=== PATIENT | male | born 1985 | race Caucasian/White ===

== ENCOUNTER 2025-03-13 10:27 | Emergency (ER) | payer SELFPAY ==
[2025-03-13 10:28] VITALS: BP 119/74
--- NOTE | 2025-03-13 11:00 | EDRN ---
Pt is hyperactive. Pt is in and out of room, peering around door, walking up to desk and back into room. Pt is redirectable though repetitive. Speech is clipped and broken at times and pt hard to understand. pt admits to 10 mg of aprazalam a day,
addirall 30 mg BID (script for TID) and sublocade that he has not been taking.
--- NOTE | 2025-03-13 11:15 | EDRN ---
Pt requesting to go out to his car to get his computer. Pt arrived by police and unknown where his car is parked, probably not in hospital lot. Pt reminded of this.
--- NOTE | 2025-03-13 11:30 | EDRN ---
Pt in and out of room, peering around door and jumping at times. As pt unable to sit still security is outside of room at this time. Pt hypervigilant and very fidety.
--- NOTE | 2025-03-13 11:35 | ED.GENMED ---
History of Present Illness
<Rosendo Macdonald PA-C - Last Filed: 03/13/25 17:13>
General
Chief Complaint: Crisis Evaluation
Time Seen by Provider: 03/13/25 11:17
History of Present Illness
History of Present Illness:
39-year-old male presents to the emergency department for evaluation of benzodiazepine withdrawal. He states that for quite some time he has been taking 10 mg of alprazolam daily under the direction of a psychiatrist. He is quite vague about the
details of how long has been taking this for. He is known to be pacing and agitated throughout examination. He denies any suicidal or homicidal ideation. He is requesting a prescription for benzodiazepines as he states he will be going to an
inpatient rehab next week
Past History
<Rosendo Macdonald PA-C - Last Filed: 03/13/25 17:13>
Past History
ED Past Medical History: Psychiatric and Other
ED Past Surgical History: None and Other
Social History
Tobacco: Smoker
Alcohol: Occasional
Drug: Cocaine, Narcotics, IVDA and Other
Personal: Single
Living: with roommate
Employment: Employed
Family History
Family History: Other (Noncontributory)
Review of Systems
<Rosendo Macdonald PA-C - Last Filed: 03/13/25 17:13>
Review of Systems
Allergies reviewed?: Yes
All Other Systems: ROS reviewed and negative except as documented in HPI and ROS
Phy Exam
<Rosendo Macdonald PA-C - Last Filed: 03/13/25 17:13>
Physical Exam
Physical Exam:
GEN: Thin, underweight, anxious
HEENT: Oral mucosa moist, no scleral icterus
Cardiac: Regular rate
Lung: No respiratory distress, no tachypnea
MSK: No gross deformity or injuries
Skin: Good color, no pallor or jaundice, no rashes
Neuro: Alert, not responding to internal stimuli, pacing about the room
Psych: Anxious and agitated
Course
<Rosendo Macdonald PA-C - Last Filed: 03/13/25 17:13>
Orders/Labs/Results
Orders:
Orders
03/13/25 11:33
Lorazepam [Ativan] 2 mg IM NOW STA
03/13/25 11:48
Midazolam HCl [Versed] 2 mg IM NOW STA
03/13/25 13:53
Diazepam [Valium] 10 mg PO NOW STA
Vital Signs
Initial and Last Documented VS:
Initial Vital Signs
Temp Pulse Resp BP Pulse Ox
98 F 120 16 119/74 96
03/13/25 10:28 03/13/25 10:28 03/13/25 10:28 03/13/25 10:28 03/13/25 10:28
Last Documented Vital Signs
Temp Pulse Resp BP Pulse Ox
97.4 F 104 18 115/99 98
03/13/25 14:35 03/13/25 14:35 03/13/25 14:35 03/13/25 14:35 03/13/25 14:35
<Sunny Veliz, - Last Filed: 03/13/25 13:17>
Orders/Labs/Results
Orders:
Orders
03/13/25 11:33
Lorazepam [Ativan] 2 mg IM NOW STA
03/13/25 11:48
Midazolam HCl [Versed] 2 mg IM NOW STA
03/13/25 13:53
Diazepam [Valium] 10 mg PO NOW STA
Vital Signs
Initial and Last Documented VS:
Initial Vital Signs
Temp Pulse Resp BP Pulse Ox
98 F 120 16 119/74 96
03/13/25 10:28 03/13/25 10:28 03/13/25 10:28 03/13/25 10:28 03/13/25 10:28
Last Documented Vital Signs
Temp Pulse Resp BP Pulse Ox
97.4 F 104 18 115/99 98
03/13/25 14:35 03/13/25 14:35 03/13/25 14:35 03/13/25 14:35 03/13/25 14:35
<Rosendo Macdonald PA-C - Last Filed: 03/13/25 17:13>
MDM/Problems Addressed
MDM/Problems Addressed:
After initial evaluation the patient was given IM midazolam with minimal improvement. He was consulted on via telephone by Jose ennis however he declined any inpatient treatment. He continued to insist that his only goal was to receive a prescription
for benzodiazepines to 'hold him over' until his admission next week. He was quite vague about the details of where he was being admitted. I contacted his outpatient psychiatrist in [place] who informs me that the patient was fired from that
practice quite sometime ago, had been receiving prescriptions for clonazepam but not the amount of alprazolam that the patient suggested. I also reviewed his PDMP which shows 1 prescription from the [facility] last month but no
other prescriptions in any [place] or [facility] pharmacy which essentially indicates the patient is receiving his benzodiazepines illicitly. I did offer to treat him medically with oral benzodiazepines under the assumption he would remain
in the hospital for withdrawal treatment and transfer to a rehab facility, initially he was amenable to this however ultimately opted to elope from the hospital before being reevaluated by Jose ennis. I did also discuss the situation with his father
Sunny and at this point the patient has not indicated any SI or HI that would warrant 302 commission
<Rosendo Macdonald PA-C - Last Filed: 03/13/25 17:13>
*Pulse Oximetry
SaO2: 96
Oxygen Mode of Delivery: Room air
Patient hypoxic: no
*Critical Care Note
Total Time (30-74mins, 75-104mins- exclusive of procedures): Not Applicable
<Rosendo Macdonald PA-C - Last Filed: 03/13/25 17:13>
Update Note
Update Note:
1550: Pt elected to sign out and not wait for placement with rehab/detox facility
1556: Pt changed mind, will stay in ED
ED Attending Note
<Rosendo Macdonald PA-C - Last Filed: 03/13/25 17:13>
-
Portions of this chart may have been created with voice recognition software.� Occasional wrong word or��sound alike� substitutions may have occurred due to the inherent limitations of voice recognition software.
<Sunny Veliz DO - Last Filed: 03/13/25 13:17>
ED Attending Note
Patient seen and examined by attending physician: Yes
I performed the substantive portion of visit, reviewed & personally made and approve the management plan that is documented in note by myself or MARQUISE.: Yes
ED Attending Note:
I have seen and evaluated the patient with a [id number] encounter. I have spoken to the advance practicer provider and involved in the medical history, the physical exam, medical decision making.
Evaluation and management service: agree unless noted differently below.
Results interpretation: agree unless noted differently below.
Focused HPI: 39-year-old male presenting for evaluation of benzodiazepine prescription. Patient states he has been out of his Xanax and is requesting a prescription.
Physical exam: Irritable, pacing around the room
Medical Decision Making: Patient states he usually takes 10 mg of clonazepam a day. We discussed that this is an inappropriate dosing and abuse of the medicine. Based on the fact that patient has shown that he is abusing benzodiazepines, we cannot
prescribe his Xanax. We did discuss the concern for possible withdrawal and discussed rehab and detox. KING did speak to the patient but patient refused to go to rehab. Throughout his stay in the emergency department, patient becoming verbally
aggressive. I explained many times that it would be inappropriate to prescribe him a medicine that he abuses. The PA has called his prior clinic where he was being prescribed Xanax. It appears they had fired him from the clinic.
Patient has many red flags. His story is changing frequently and he talks about multiple pharmacies in different states within the area where he goes for prescriptions
He denies suicidal or homicidal thoughts
Discharge Plan
Departure
Patient Disposition: Home (Routine Discharge)
Date of Disposition: 03/13/25
Time of Disposition: 16:28
Patient with high blood pressure during this ER visit?: No
Discharge Problem:
Benzodiazepine abuse
Prescriptions:
No Action
clonazepam 1 MG tablet
2 mg PO BID
dextroamphetamine-amphetamine [Adderall] 30 MG tablet
30 mg PO DAILY
naloxone [Narcan] 4 MG spray,non-aerosol
4 mg intranasal DIRECTED Qty: 2 0RF
SUBOXONE 8 MG-2 MG SL FILM
16 mg PO DAILY
Referrals:
UNKNOWN - PT NOT,INTERVIEWE [Family Provider]
Interventions
Interventions:
*Risk Screen - Suicide Last Done: 03/13/25 10:34
*General Assessment Last Done: 03/13/25 12:53
*Neglect/Abuse Screening Last Done: 03/13/25 10:34
*ED- Fall Risk Assessment Last Done: 03/13/25 12:53
*ED COVID-19 Vaccine History Last Done: 03/13/25 12:53
*Nursing Disposition Last Done: 03/13/25 16:20
ED-Psychological Assessment Last Done: 03/13/25 11:30
Discharge Date and Time
Discharge Date/Time: 03/13/25 16:20
Print Language: MACEDONIAN
--- NOTE | 2025-03-13 11:45 | EDRN ---
Pt is again asking to go to his car for his computer by unknown where car is parked.
[2025-03-13] MEDS: VERSED 2 MG IM (11:53)
--- NOTE | 2025-03-13 12:00 | EDRN ---
Pt remains in and out of room. At this time pt was carrying visiting chairs out of room. Pt was just found squatting on floor looking under bed. Pt also has taken sheet partially off of stretcher. pt continues to be peering around door and in and
out of room.
--- NOTE | 2025-03-13 12:20 | EDRN ---
Pt speaking w/ [employer] at this time. Pt is wandering in and out of room while talking on the phone. Pt not sitting still.
--- NOTE | 2025-03-13 12:45 | EDRN ---
Glenn Macdonald pa in to speak w/ pt.
--- NOTE | 2025-03-13 12:50 | EDRN ---
Pt was in room and had spilled his water on table and had broken off metal bar that adjusts table up and down. This RN took the bar out of room.
[2025-03-13 12:54] VITALS: BMI 20.1
--- NOTE | 2025-03-13 12:59 | EDRN ---
Pt cannot stay in room. Security is looking for his belongings to bring them to him. Pt states he filled his prescription at [facility] when Glenn LUU
--- NOTE | 2025-03-13 13:00 | EDRN ---
One to one observation started w/ 2 perfusionist and 1 security to keep pt from wandering hallways and continuously asking questions to staff. Pt was not placed on one to one for harm to self or others.
--- NOTE | 2025-03-13 13:03 | EDRN ---
Pt repetively advised to stay in room and constantly out of room staring down [place] and at me.
--- NOTE | 2025-03-13 13:04 | EDRN ---
Glenn Macdonald PA in room w/ pt at this time. Pt was brought his phone by security at this time, rest of belongings still with security.
--- NOTE | 2025-03-13 13:12 | EDRN ---
Pt is talking to PA and MD at this time. Pt not staying in room. This RN requested one to one to keep pt in room for privacy of others. Pt is upset as Glenn SANDOVAL will not prescribe benzos for pt w/out having confirmation of an actual prescription
though none found at any pharmacy [place]am.
[2025-03-13 13:20] VITALS: BP 120/81
--- NOTE | 2025-03-13 14:02 | EDRN ---
Pt has decided to stay and see crisis and find in pt care.
[2025-03-13] MEDS: VALIUM 10 MG PO (14:07)
[2025-03-13 14:35] VITALS: BP 115/99
--- NOTE | 2025-03-13 14:35 | EDRN ---
Pt taken off one to one. If pt cannot stay in room, pt will be excorted out of ER by security per Glenn SANDOVAL. Pt only had one to one to keep him from wandering in and out of room and wandering hallways for HIPPA, to keep other pt's privacy and stop
him from repetively asking same questions over and over to staff.
--- NOTE | 2025-03-13 14:59 | EDRN ---
Pt just exited room and attempted to go into director offices. Pt was asked to go back into his room and returned to his room saying, 'Did they change my room?' This RN answered no. Pt then said 'there was a bathroom here' pointing to wall that is
on other side of crisis BR and there was a closet over here' pointing to wall towards room #35.
--- NOTE | 2025-03-13 15:37 | EDRN ---
Pt was just checked and was found on floor looking under stretcher w/ phone cord in hand. Pt was out of room and phone charging outside of room and told no electric plugs are in room. Pt had unplugged phone and in room looking for plug at this time.
--- NOTE | 2025-03-13 15:38 | EDRN ---
Pt asked this RN to put a phone call through for him on one of our work cell phones which this nurse did. He stated it was to his mother.
--- NOTE | 2025-03-13 15:45 | EDRN ---
Stretcher exchanged for crisis regular bed after this RN found pt on floor fiddling w/ area under stretcher for fear of pt hurting himself. Pt had broken off metal lever from bedside table that adjusts height of table ealier.
--- NOTE | 2025-03-13 15:55 | EDRN ---
Pt again saying he is going to leave even though the [employer] rep will be in momentarily. Tech who was outside of room trying to be present and talk with pt to prevent him from coming out and wandering ED halls was told by pt that he wanted to leave
at this time. Pt reminded that rep would be with him soon again. Pt insisted on leaving. Security was called for pt's belongings.
--- NOTE | 2025-03-13 15:55 | EDRN ---
Pt was informed at this time that Rov from [facility] is presently here and will be in to see pt momentarily.
--- NOTE | 2025-03-13 16:20 | EDRN ---
Pt ambulated to security to claim his belongings w/ tech from his room as he insisted on leaving w/out seeing rep, pt aware that he will not be able to get care soon as his insurance will run out in next week.
== END 2025-03-13 16:20 | disposition home or self-care (01) ==
LOC: EMR 10:27
PROVIDERS: EMERGENCY PHYSICIAN Student in an Organized Health Care Education/Training Program
DX: F13.10 Sedative, hypnotic or anxiolytic abuse, uncomplicated (principal); F17.200 Nicotine dependence, unspecified, uncomplicated; Z79.899 Other long term (current) drug therapy
CPT/HCPCS: 99284; 96372